=== PATIENT | male | born 2000 | race Two or more races ===

== ENCOUNTER 2021-09-18 13:32 | Emergency (ER) | payer OTHER ==
[~2021-09-18] VITALS: Ht 177.8 cm; Wt 86.2 kg
== END 2021-09-18 16:27 | disposition home or self-care (01) ==
LOC: ER 13:32
DX: J10.1 Influenza due to other identified influenza virus with other respiratory manifestations (principal); J09.X2 Influenza due to identified novel influenza A virus with other respiratory manifestations; Z20.822 Contact with and (suspected) exposure to COVID-19